=== PATIENT | female | born 1975 | race Caucasian/White ===

== ENCOUNTER 2021-02-08 18:58 | Emergency (ER) | payer BC ==
[2021-02-08] MEDS ORDERED: ONDANSETRON 4 MG/2 ML INJ IV ONE (19:30)
[2021-02-08] MEDS ORDERED: SODIUM CHLORIDE 0.9% 1000 ML 1,000 ML IV ONE (19:30)
[2021-02-08] MEDS ORDERED: KETOROLAC 30 MG/1 ML INJ IV ONE (19:30)
--- NOTE | 2021-02-08 19:35 | Emergency Department Report ---
ED General Adult HPI - General Chief complaint: Abdominal Pain Stated complaint: BACK PAIN/VOMIT Time Seen by Provider: 02/08/21 19:29 Source: patient Mode of arrival: Ambulatory Limitations: No Limitations - History of Present Illness Initial comments: Patient 45-year-old female with history of renal stones who presents for right flank pain with nausea vomiting x3 days. Patient does endorse dysuria frequency and urgency. Patient denies hematuria however. Pain is rated at 5/10. Exacerbated by voiding, pain is relieved by nothing tried. Patient has history of hypertension and MONICA. - Related Data Previous Rx's Medication Instructions Recorded Last Taken Type Azithromycin [Zithromax Z-URMILA] 0 mg PO DAILY #6 tab 10/18/19 Unknown Rx Benzonatate [Tessalon Perles] 100 mg PO Q8HR #30 capsule 10/18/19 Unknown Rx Promethazine [Phenergan] 25 mg PO Q6HR PRN #20 tab 10/18/19 Unknown Rx Promethazine [Phenergan] 25 mg GA Q6HR PRN #5 supp.rect 10/18/19 Unknown Rx Naproxen 500 mg PO BID PRN #30 tablet 02/08/21 Unknown Rx cephALEXin [Keflex] 500 mg PO BID 7 Days #14 cap 02/08/21 Unknown Rx Allergies Allergy/AdvReac Type Severity Reaction Status Date / Time No Known Allergies Allergy Verified 02/08/21 19:01 ED Review of Systems ROS: Stated complaint: BACK PAIN/VOMIT Other details as noted in HPI Constitutional: chills, malaise. denies: fever Eyes: denies: eye pain, eye discharge, vision change ENT: denies: ear pain, throat pain Respiratory: denies: cough, shortness of breath, wheezing Cardiovascular: denies: chest pain, palpitations Endocrine: no symptoms reported Gastrointestinal: abdominal pain, nausea, vomiting Genitourinary: urgency, dysuria, frequency. denies: hematuria Musculoskeletal: back pain (Right Flank) Skin: denies: rash, lesions Neurological: denies: headache, weakness, paresthesias, vertigo Psychiatric: denies: anxiety, depression Hematological/Lymphatic: denies: easy bleeding, easy bruising ED Past Medical Hx - Social History Smoking Status: Never Smoker Substance Use Type: None - Medications Home Medications: Home Medications Medication Instructions Recorded Confirmed Last Taken Type Azithromycin [Zithromax Z-URMILA] 0 mg PO DAILY #6 tab 10/18/19 Unknown Rx Benzonatate [Tessalon Perles] 100 mg PO Q8HR #30 capsule 10/18/19 Unknown Rx Promethazine [Phenergan] 25 mg PO Q6HR PRN #20 tab 10/18/19 Unknown Rx Promethazine [Phenergan] 25 mg GA Q6HR PRN #5 supp.rect 10/18/19 Unknown Rx Naproxen 500 mg PO BID PRN #30 tablet 02/08/21 Unknown Rx cephALEXin [Keflex] 500 mg PO BID 7 Days #14 cap 02/08/21 Unknown Rx ED Physical Exam - General Limitations: No Limitations General appearance: alert, in no apparent distress - Head Head exam: Present: atraumatic, normocephalic - Eye Eye exam: Present: EOMI Pupils: Present: normal accommodation - ENT ENT exam: Present: mucous membranes moist - Neck Neck exam: Present: normal inspection, full ROM. Absent: tenderness - Respiratory Respiratory exam: Present: normal lung sounds bilaterally. Absent: respiratory distress, wheezes - Cardiovascular Cardiovascular Exam: Present: regular rate, normal rhythm, normal heart sounds. Absent: systolic murmur, diastolic murmur, rubs, gallop - GI/Abdominal GI/Abdominal exam: Present: soft, normal bowel sounds. Absent: distended, tenderness, guarding, rebound, rigid, bruit, hernia - Rectal Rectal exam: Present: deferred - Extremities Exam Extremities exam: Present: normal inspection, full ROM. Absent: tenderness - Back Exam Back exam: Present: normal inspection, full ROM, CVA tenderness (R). Absent: CVA tenderness (L) - Neurological Exam Neurological exam: Present: alert, oriented X3, CN II-XII intact, normal gait - Psychiatric Psychiatric exam: Present: normal affect, normal mood - Skin Skin exam: Present: warm, dry, intact, normal color. Absent: rash ED Course Vital Signs 02/08/21 19:04 Temperature 98.9 F Pulse Rate 81 Respiratory 18 Rate Blood Pressure 128/75 O2 Sat by Pulse 99 Oximetry ED Medical Decision Making - Lab Data Result diagrams: 02/08/21 19:39 02/08/21 19:39 Labs 02/08/21 02/08/21 02/08/21 19:39 19:39 19:54 WBC 13.3 H RBC 5.48 H Hgb 9.9 L Hct 32.5 MCV 59 L MCH 18 L MCHC 31 RDW 16.8 H Plt Count 401 Lymph % (Auto) 22.0 Braxton % (Auto) 6.5 Eos % (Auto) 1.4 Baso % (Auto) 0.3 Lymph # (Auto) 2.9 Braxton # (Auto) 0.9 H Eos # (Auto) 0.2 Baso # (Auto) 0.0 Seg Neutrophils % 69.8 Seg Neutrophils # 9.3 H Sodium 138 Potassium 3.8 Chloride 105.4 Carbon Dioxide 24 Anion Gap 12 BUN 13 Creatinine 0.9 Estimated GFR > 60 BUN/Creatinine Ratio 14 Glucose 115 H Calcium 8.6 Total Bilirubin 0.40 AST 13 ALT 9 Alkaline Phosphatase 40 Total Protein 6.8 Albumin 3.8 L Albumin/Globulin Ratio 1.3 Urine Color Straw Urine Turbidity Clear Urine pH 6.0 Ur Specific [place] 1.009 Urine Protein 100 mg/dl Urine Glucose (UA) Neg Urine Ketones Neg Urine Blood Lg Urine Nitrite Neg Urine Bilirubin Neg Urine Urobilinogen < 2.0 Ur Leukocyte Esterase Neg Urine WBC (Auto) 3.0 Urine RBC (Auto) 19.0 U Epithel Cells (Auto) 5.0 Urine Mucus Few - Radiology Data Radiology results: report reviewed, image reviewed CT ABDOMEN AND PELVIS WITHOUT CONTRAST INDICATION / CLINICAL INFORMATION: renal stones abd pain. TECHNIQUE: Axial CT images were obtained through the abdomen and pelvis without IV contrast. All CT scans at this location are performed using CT dose reduction for ALARA by means of automated exposure control. COMPARISON: None available. FINDINGS: LOWER CHEST: Bibasilar volume loss. LIVER: Bilobar hepatic cysts. GALLBLADDER/BILIARY TREE: No significant abnormality PANCREAS: No significant abnormality SPLEEN: No significant abnormality ADRENALS: No significant abnormality KIDNEYS / URETER: No significant abnormality. There is no renal or ureteral calculus identified. No significant hydronephrosis. URINARY BLADDER: No significant abnormality REPRODUCTIVE ORGANS: No significant abnormality STOMACH / BOWEL: No significant abnormality. The appendix is normal in caliber. LYMPH NODES: No significant adenopathy. VASCULATURE: No significant abnormality. OTHER: No free air, free fluid, or focal fluid collection is identified. SKELETAL SYSTEM: No acute osseous findings. IMPRESSION: No acute abnormality of the abdomen or pelvis. No urolithiasis or hydronephrosis. Signer Name: Dorian Roca MD Signed: 02/08/2021 9:32 PM Workstation Name: [id number] - Medical Decision Making CT abdomen and pelvis normal no renal stones. Labs noted. Pain is improved with medications given in ED. Plan DC to home., follow-up primary care doctor in 2 to 3 days. Return to emergency department should symptoms worsen. Critical care attestation.: If time is entered above; I have spent that time in minutes in the direct care of this critically ill patient, excluding procedure time. ED Disposition Clinical Impression: Flank pain, Dysuria Disposition: HOME / SELF CARE / HOMELESS Is pt being admited?: No Does the pt Need Aspirin: No Condition: Stable Instructions: Abdominal Pain (ED), Dysuria, Flank Pain, Adult, [id number] Additional Instructions: Take medications as prescribed, follow-up with your primary care doctor in 2 to 3 days. Return to emergency department should symptoms worsen. Prescriptions: cephALEXin [Keflex] 500 mg PO BID 7 Days #14 cap Naproxen 500 mg PO BID PRN #30 tablet PRN Reason: pain Referrals: TEENA RUSH MD [Primary Care Provider] - 2-3 Days Forms: AMA Form, Work/School Release Form(ED) Time of Disposition: 22:14
[2021-02-08 19:49] LABS: Basophils % (Auto) 0.3 % (0.0-1.8); Eosinophils # (Auto) 0.2 K/mm3 (0.0-0.4); Eosinophils % (Auto) 1.4 % (0.0-4.3); Hematocrit 32.5 % (30.3-42.9); Hemoglobin 9.9 gm/dl (10.1-14.3); Lymphocytes # (Auto) 2.9 K/mm3 (1.2-5.4); Mean Corpuscular HGB Conc 31 % (30-34); Monocytes # (Auto) 0.9 K/mm3 (0.0-0.8); Monocytes % (Auto) 6.5 % (0.0-7.3); Platelet Count 401 K/mm3 (140-440); Red Blood Count 5.48 M/mm3 (3.65-5.03); Red Cell Distribution Width 16.8 % (13.2-15.2)
[2021-02-08 19:51] LABS: Mean Corpuscular Volume 59 fl (79-97)
[2021-02-08 19:58] VITALS: BP 128/75
[2021-02-08 20:14] LABS: Alanine Aminotransferase 9 units/L (7-56); Albumin 3.8 g/dL (3.9-5); BUN/Creatinine Ratio 14; Blood Urea Nitrogen 13 mg/dL (7-17); Calcium 8.6 mg/dL (8.4-10.2); Hemolysis Index 5
[2021-02-08 20:25] LABS: Bilirubin,Urine NEG (Negative); Blood,Urine LG (Negative); Color,Urine Straw (Yellow); Mucus,Urine FEW /HPF; Urobilinogen,Urine < 2.0 mg/dL (<2.0)
--- NOTE | 2021-02-08 21:36 | Cat Scan Report ---
CT ABDOMEN AND PELVIS WITHOUT CONTRAST INDICATION / CLINICAL INFORMATION: renal stones abd pain. TECHNIQUE: Axial CT images were obtained through the abdomen and pelvis without IV contrast. All CT scans at this location are performed using CT dose reduction for ALARA by means of automated exposure control. COMPARISON: None available. FINDINGS: LOWER CHEST: Bibasilar volume loss. LIVER: Bilobar hepatic cysts. GALLBLADDER/BILIARY TREE: No significant abnormality PANCREAS: No significant abnormality SPLEEN: No significant abnormality ADRENALS: No significant abnormality KIDNEYS / URETER: No significant abnormality. There is no renal or ureteral calculus identified. No s ignificant hydronephrosis. URINARY BLADDER: No significant abnormality REPRODUCTIVE ORGANS: No significant abnormality STOMACH / BOWEL: No significant abnormality. The appendix is normal in caliber. LYMPH NODES: No significant adenopathy. VASCULATURE: No significant abnormality. OTHER: No free air, free fluid, or focal fluid collection is identified. SKELETAL SYSTEM: No acute osseous findings. IMPRESSION: No acute abnormality of the abdomen or pelvis. No urolithiasis or hydronephrosis. Signer Name: Dorian Roca MD Signed: 02/08/2021 9:32 PM Workstation Name: [id number]
== END 2021-02-08 22:32 | disposition home or self-care (01) ==
LOC: ED 18:58
DX: R30.0 Dysuria (principal); R10.9 Unspecified abdominal pain; R11.2 Nausea with vomiting, unspecified; R35.0 Frequency of micturition; R39.15 Urgency of urination
CPT/HCPCS: 36415; 74176; 80053; 81001; 85025; 96361; 96374; 96375; 99284; J1885; J2405; J7030; Q0162